=== PATIENT | male | born 1955 | race Caucasian/White ===

== ENCOUNTER 2022-09-20 15:00 | Inpatient (IN) | payer MEDICARE, OTHER ==
[~2022-09-20] VITALS: Ht 180.3 cm; Wt 64.9 kg
--- NOTE | 2022-09-20 15:30 | NUR ---
Patient for medical clearance for gps admission. Sitter at bedside. Kept comfortable, will continue to monitor accordingly.
[2022-09-20] MEDS ORDERED: CHOL100043 PO (15:34)
[2022-09-20] MEDS ORDERED: LEVE500T9 PO (15:34)
[2022-09-20] MEDS ORDERED: ATOR10TA PO (15:34)
[2022-09-20] MEDS ORDERED: FENO54TA PO (15:34)
[2022-09-20] MEDS ORDERED: LOPE2TAB25 PO (15:34)
[2022-09-20] MEDS ORDERED: RISP0.2515 PO (15:34)
[2022-09-20] MEDS ORDERED: BISA10SU11 RC (15:34)
[2022-09-20] MEDS ORDERED: MELA3CAP2 PO (15:34)
[2022-09-20] MEDS ORDERED: NA P133E RC (15:34)
[2022-09-20] MEDS ORDERED: MAGN400O6 PO (15:34)
[2022-09-20] MEDS ORDERED: ASPI-1420 PO (15:34)
[2022-09-20] MEDS ORDERED: ACET-868 PO (15:34)
[2022-09-20] MEDS ORDERED: MULT-447 PO (15:34)
[2022-09-20] MEDS ORDERED: BACL10TA PO (15:34)
[2022-09-20] MEDS ORDERED: TRAZ-182 PO (15:34)
[2022-09-20] MEDS ORDERED: ASCO-352 PO (15:34)
--- NOTE | 2022-09-20 17:27 | NUR ---
covid swab collected and sent to lab.
[2022-09-20 17:34] LABS: BASOPHILS # (AUTO) 0.1 K/uL (0.0-0.2); EOSINOPHILS % (AUTO) 7.1 % (0.0-6.0); HEMATOCRIT 39 % (39-51); HEMOGLOBIN 12.8 g/dL (13.5-17.5); LYMPHOCYTES # (AUTO) 1.6 K/uL (0.8-4.8); LYMPHOCYTES % (AUTO) 28.8 % (20.0-44.0); MEAN CORPUSCULAR HGB CONC 33 g/dl (31.0-36.0); MEAN CORPUSCULAR VOLUME 86 fL (80-96); MONOCYTES # (AUTO) 0.6 K/uL (0.1-1.30); MONOCYTES % (AUTO) 11.2 % (2.0-12.0); NEUTROPHILS # (AUTO) 2.9 K/uL (1.8-8.9); NEUTROPHILS % (AUTO) 51.9 % (43.0-81.0); PLATELET COUNT (AUTO) 225 K/uL (150-450); RED BLOOD CELL COUNT(AUTO) 4.55 MIL/uL (4.5-6.0); WHITE BLOOD COUNT (AUTO) 5.6 K/uL (4.3-11.0)
[2022-09-20 17:51] LABS: CALCIUM, SERUM 8.7 mg/dL (8.5-10.1); CARBON DIOXIDE 26 mmol/L (21-32); CHLORIDE 105 mmol/L (98-107); CREATININE 1.3 mg/dL (0.6-1.3); GLUCOSE 83 mg/dL (74-106); SODIUM SERUM 139 mmol/L (136-145); UREA NITROGEN, BLOOD 32 mg/dL (7-18)
[2022-09-20 17:59] LABS: ALANINE AMINOTRANSFERASE 17 U/L (12-78); ALBUMIN 3.5 g/dL (3.4-5.0); ALKALINE PHOSPHATASE 40 U/L (46-116); ASPARTATE AMINOTRANSFERASE 11 U/L (15-37); BILIRUBIN,DIRECT 0.1 mg/dL (0.0-0.2); BILIRUBIN,TOTAL 0.3 mg/dL (0.2-1.0); TOTAL PROTEIN, SERUM 6.8 g/dL (6.4-8.2)
[2022-09-20 18:00] LABS: ACETAMINOPHEN 0 ug/ml (10-30); ALCOHOL, BLOOD < 3 mg/dL (0-0)
--- NOTE | 2022-09-20 19:06 | NUR ---
urine collected and sent to lab.
[2022-09-20 19:54] LABS: BILIRUBIN,URINE NEGATIVE (NEGATIVE); COLOR,URINE YELLOW (YELLOW); LEUKOCYTE ESTERASE ,URINE NEGATIVE (NEGATIVE); NITRITE, URINE POSITIVE (NEGATIVE); PROTEIN,URINE NEGATIVE (NEGATIVE); UGLUCOSE NEGATIVE (NEGATIVE); UROBILINOGEN,URINE 0.2 EU/dL (0.2)
[2022-09-20 20:01] LABS: BACTERIA,URINE 4+ /HPF (None Seen); RBC,URINE 0-2 /HPF (0-2); SQUAMOUS EPITHELIAL CELL,UR Few /HPF (None Seen)
--- NOTE | 2022-09-20 20:54 | NUR ---
REPORT GIVEN TO LAILA TINOCO
--- NOTE | 2022-09-20 21:20 | NUR ---
PATIENT BEING TRTANSFERRED TO [facility]
[2022-09-20] MEDS ORDERED: CIPROFLOXACIN HCL 250 MG TABLET PO ONE (21:30)
[2022-09-20] MEDS ORDERED: CIPROFLOXACIN HCL 500 MG TABLET ONE (21:31)
--- NOTE | 2022-09-20 21:50 | NUR ---
RN NOTES PT REFUSED TO ADMISSION PAPERS DUE TO CONFUSION.
--- NOTE | 2022-09-20 21:58 | NUR ---
RN NOTES; RECEIVED PATIENT FROM ER ON WHEELCHAIR IN RM 212-1,AOX2 WITH CONFUSION,RM AIR MARY WELL,NO SIGN SOB/DISTRESS NOTED,PT NOTED LEFTSIDED WEAKNESS,NO SIGN OF AGGRESSION NOTED.PT NOTED POINTING FINGER TOWARDS STAFF AND LAUGHT.COOPERATIVE,PT WAS ORIENT THE RM AND VERBALLY UNDERSTANDING,WILL CONTINUE TO MONITOR FREQUENTLY.
[2022-09-20] MEDS ORDERED: ACETAMINOPHEN 325 MG TABLET PO PRN (22:00)
[2022-09-20] MEDS ORDERED: MAG HYDROX/AL HYDROX/SIMETH 30 ML UDC PO PRN (22:00)
[2022-09-20] MEDS ORDERED: MAGNESIUM HYDROXIDE 30 ML UDC PO PRN (22:00)
[2022-09-20] MEDS ORDERED: BLOOD SUGAR DIAGNOSTIC 1 EACH STRIP IN ONE (22:00)
[2022-09-20 22:07] VITALS: BP 136/68
[2022-09-20] MEDS: ATORVASTATIN 10 MG TABLET PO SCH (22:46)
[2022-09-20] MEDS: LEVETIRACETAM (250 MG) 250 MG TABLET PO SCH (22:46)
--- NOTE | 2022-09-20 23:00 | NUR ---
RN NOTES; PT REFUSED TO CHECK BS.
[2022-09-21 07:35] LABS: CHOLESTEROL 122 mg/dL (<200); HDL CHOLESTEROL 42 mg/dL (40-60); LDL 77 mg/dL (0-99); TRIGLYCERIDES 70 mg/dL (30-150)
[2022-09-21 07:43] LABS: ALBUMIN 3.2 g/dL (3.4-5.0); BILIRUBIN,TOTAL 0.5 mg/dL (0.2-1.0); CALCIUM, SERUM 8.5 mg/dL (8.5-10.1); CREATININE 1.1 mg/dL (0.6-1.3); POTASSIUM 3.8 mmol/L (3.5-5.1); TOTAL PROTEIN, SERUM 6.4 g/dL (6.4-8.2)
[2022-09-21 08:00] VITALS: BP 126/52
[2022-09-21] MEDS: MULTIPLE VIT (LYCOPENE/FA/MV,CA,IRON,MIN/LUT)1 TAB PO SCH (08:40)
[2022-09-21] MEDS: ASPIRIN EC 81 MG TABLET.DR PO SCH (08:40)
[2022-09-21] MEDS: CHOLECALCIFEROL (VITAMIN D 3) 400 UNIT TABLET PO SCH (08:40)
[2022-09-21] MEDS: Fenofibrate 48 MG TABLET PO SCH (08:40)
[2022-09-21] MEDS: BACLOFEN (10 MG) 10 MG TABLET PO SCH ×3 (08:40→17:34)
[2022-09-21] MEDS: LEVETIRACETAM (250 MG) 250 MG TABLET PO SCH ×2 (08:41→21:27)
[2022-09-21] MEDS: ASCORBIC ACID 500 MG TABLET PO SCH (08:41)
--- NOTE | 2022-09-21 09:19 | NUR ---
TERRI Clinical Note: Pt placed on a 5150 hold for danger to others and GD. Per hold, pt was striking out at staff and not taking medications. [place] [address]; ([phone]). TERRI spoke with Melina alcazar ([phone]) who stated that pt is welcomed back upon discharge. TERRI will contact pt's daughter Kalina ([phone]) to discuss treatment and discharge plan.
--- NOTE | 2022-09-21 09:19 | NUR ---
TERRI Initial Discharge Plan: Patient currently resides at [facility] [address] [place] [id number]; ([phone]). TERRI spoke with Melina alcazar ([phone]) who stated that pt is welcomed back upon discharge. TERRI will contact pt's daughter Kalina ([phone]) to discuss treatment and discharge plan. TERRI will work with the pt, family, and MD to help coordinate appropriate discharge.
--- NOTE | 2022-09-21 09:20 | NUR ---
Treatment Plan: Pt appeared disorganized and was unable to sign treatment plan.
--- NOTE | 2022-09-21 10:41 | NUR ---
Pt. keeps screaming and wanted to smoke. Pt. was explained that we are a non smoking hospital and pt. is disruptive in the unit and Dr. Ceballos in the unit and ordered Zyprexa 5 mg IM and Ativan 1 mg IM. Pt. agreed for the injections and said he wanted injections.
--- NOTE | 2022-09-21 10:45 | NUR ---
RN NOTES PATIENT ANXIOUS, LOUD, PARANOID, GET TO ONE TIME ORDER VIA Dr GTZ ATIVAN 1MG/ML IM, AND ZYPREXA 5MG/ML IMX1 NOW. ORDER TAKEN AND CARRIED OUT.
--- NOTE | 2022-09-21 10:50 | NUR ---
RN NOTED ADMINISTERED ATIVAN 1 MG/ML IM, AND ZYPREXA 5MG/ML IM LEFT DELTOID AREA AT THIS TIME. PATIENT REFUSED VITAL SIGN TO BE TAKEN. PATIENT SITTING IN THE DIANA CHAIR. WILL FOLLOW UP.
[2022-09-21] MEDS ORDERED: LORAZEPAM INJ 2 MG/ML VIAL IM ONE (11:00)
[2022-09-21] MEDS ORDERED: OLANZAPINE 10 MG VIAL IM ONE (11:00)
--- NOTE | 2022-09-21 13:33 | NUR ---
TERRI Family Contact: TERRI contacted pt's daughter Kalina ([phone]) and discussed treatment/discharge plan. Daughter stated that she is the DPOA and will send document to this designer/writer. Daughter would want pt to return back to [facility]. Daughter shared that pt has a history of having reoccurring uti. TERRI notified this concern to pt's assigned nurse Jamarcus. Jamarcus stated that pt possibly has uti and took Cipro. Nurse will be in contact with medical doctor if pt needs to continue antibiotics. TERRI shared this information to Dr. Ceballos.
--- NOTE | 2022-09-21 14:09 | NUR ---
DPOA Document: Daughter Kalina ([phone]) send DPOA paperwork and SW placed it in patient's chart.
[2022-09-21 16:00] VITALS: BP 126/73
--- NOTE | 2022-09-21 16:41 | NUR ---
rn notes notified hospitalist Dr Espinosa about patient urine result. no new order at this time.
[2022-09-21] MEDS: risperiDONE 0.25 MG TABLET PO SCH (17:33)
--- NOTE | 2022-09-21 18:00 | NUR ---
RN NOTES PATIENT MED COMPLIANT, REDIRECTABLE, DUE MEDICATION ADMINISTERED, PATIENT ABLE TO TURN AND REPOSTION SELF IN THE DIANA CHAIR. NEEDS ATTENDED AND ATICIPATED. TOLERATED DINNER 100% SELF.
--- NOTE | 2022-09-21 19:30 | NUR ---
GPS RN NOTES RECEIVED SITTING ON DIANA CHAIR,A/O X2,CONFUSED,DISORGANIZED,WITH LEFT SIDE WEAKNESS,YELLS AT TIMES,ALWAYS DOING SIGNS TO HAVE SMOKE A CIGARETTE,DISORGANIZED.NOTED SOME REDNESS ON BOTH LOWER EXTREMITIES.FALL RISK,FALL PRECAUTION OBSERVED.WILL CONTINUE WITH Q 15 MINUTES FOR SAFETY.
[2022-09-21 20:00] VITALS: BP_SYST 125; BP_DIAS 74; BP_DIAS 79
[2022-09-21] MEDS: ATORVASTATIN 10 MG TABLET PO SCH (21:27)
[2022-09-21] MEDS: TRAZODONE 50 MG TABLET PO SCH (21:27)
[2022-09-22] MEDS: CIPROFLOXACIN HCL 250 MG TABLET PO SCH ×3 (01:00→21:03)
[2022-09-22 08:00] VITALS: BP 122/74
[2022-09-22] MEDS: MULTIPLE VIT (LYCOPENE/FA/MV,CA,IRON,MIN/LUT)1 TAB PO SCH (08:58)
[2022-09-22] MEDS: ASCORBIC ACID 500 MG TABLET PO SCH (08:59)
[2022-09-22] MEDS: LEVETIRACETAM (250 MG) 250 MG TABLET PO SCH ×2 (08:59→21:03)
[2022-09-22] MEDS: ASPIRIN EC 81 MG TABLET.DR PO SCH (08:59)
[2022-09-22] MEDS: CHOLECALCIFEROL (VITAMIN D 3) 400 UNIT TABLET PO SCH (08:59)
[2022-09-22] MEDS: Fenofibrate 48 MG TABLET PO SCH (08:59)
[2022-09-22] MEDS: risperiDONE 0.25 MG TABLET PO SCH (08:59)
[2022-09-22] MEDS: BACLOFEN (10 MG) 10 MG TABLET PO SCH ×3 (08:59→16:19)
[2022-09-22] MEDS: risperiDONE 1 MG TABLET PO SCH ×2 (12:19→16:19)
[2022-09-22 16:00] VITALS: BP 99/68
--- NOTE | 2022-09-22 18:36 | NUR ---
RN NOTE PATIENT UP IN GERICHAIR, AWAKE. A/O X2. VERBALLY RESPONSIVE, NO SIGNS OF ACUTE DISTRESS NOTED. BREATHING EVEN AND UNLABORED. DENIES ANY PAIN OR DISCOMFORT. PATIENT REMAINS ANXIOUS, RESTLESS, WITH EPISODES OF SCREAMING/YELLING, INTERNALLY PREOCCUPIED, DISORGANIZED. RE-ORIENTED NEEDED. COMPLIANT WITH MEDS. WILL ENDORSE TO NEXT SHIFT FOR CONTINUITY OF CARE.
[2022-09-22] MEDS: LORAZEPAM 0.5 MG TABLET PO PRN (18:46)
--- NOTE | 2022-09-22 18:46 | NUR ---
RN NOTE LORAZEPAM 1 MG ORAL GIVEN FOR RESTLESSNESS, SCREAMING AND YELLING. WILL MONITOR FOR EFFECTIVENESS.
--- NOTE | 2022-09-22 19:48 | NUR ---
RN NOTE RECEIVED PT IN DIANA CHAIR, AWAKE, A/O X2, CONFUSED.NO SIGNS OF ACUTE DISTRESS NOTED. NO COMPLAINTS OF PAIN AT THIS TIME. STABLE ON ROOM AIR, BREATHING EVEN AND UNLABORED.PT ASSISTED WITH TURNING AND REPOSITIONING Q2 HR AND PRN FOR COMFORT AND CIRCULATION. PT HAS NO NEEDS AT THIS TIME.
[2022-09-22 20:00] VITALS: BP 129/58
[2022-09-22] MEDS: ATORVASTATIN 10 MG TABLET PO SCH (21:03)
[2022-09-22] MEDS: TRAZODONE 50 MG TABLET PO SCH (22:08)
--- NOTE | 2022-09-23 07:28 | NUR ---
GPS RN OPENING NOTE RECEIVED PT IN BED ASLEEP, EASILY AROUSED. A/O X2, CONFUSED. REORIENTED PT NEEDED. ON ROOM AIR, TOLERATING WELL. NO SOB NOTED. NOT IN ANY SIGNS OF RESPIRATORY DISTRESS NOTED. NO COMPLAINTS OF PAIN AT THIS TIME. STABLE ON ROOM AIR, BREATHING EVEN AND UNLABORED. SAFETY MEASURES IN PLACE AT ALL TIMES: BED IN LOWEST AND LOCKED POSITION, BED SIDE RAILS UPX3, AND CALL LIGHT WITHIN REACH. WILL CONTINUE TO MONITOR PT.
[2022-09-23 08:00] VITALS: BP 120/68
[2022-09-23] MEDS: MULTIPLE VIT (LYCOPENE/FA/MV,CA,IRON,MIN/LUT)1 TAB PO SCH (08:48)
[2022-09-23] MEDS: CIPROFLOXACIN HCL 250 MG TABLET PO SCH ×2 (08:49→20:06)
[2022-09-23] MEDS: CHOLECALCIFEROL (VITAMIN D 3) 400 UNIT TABLET PO SCH (08:49)
[2022-09-23] MEDS: Fenofibrate 48 MG TABLET PO SCH (08:49)
[2022-09-23] MEDS: LEVETIRACETAM (250 MG) 250 MG TABLET PO SCH ×2 (08:49→20:06)
[2022-09-23] MEDS: BACLOFEN (10 MG) 10 MG TABLET PO SCH ×3 (08:49→16:08)
[2022-09-23] MEDS: risperiDONE 1 MG TABLET PO SCH ×3 (08:49→16:08)
[2022-09-23] MEDS: ASCORBIC ACID 500 MG TABLET PO SCH (08:49)
[2022-09-23] MEDS: ASPIRIN EC 81 MG TABLET.DR PO SCH (08:52)
[2022-09-23] MEDS: LORAZEPAM 0.5 MG TABLET PO PRN (09:40)
--- NOTE | 2022-09-23 09:41 | NUR ---
RN NOTE PT NOTED WITH EPISODES OF AGITATION AND SCREAMING. ATIVAN 1MG PO GIVEN ORDERED PRN Q6H FOR ANXIETY AND AGITATION. WILL MONITOR AND REASSESS PT.
[2022-09-23 16:00] VITALS: BP 140/67
[2022-09-23 20:00] VITALS: BP 127/57
[2022-09-23] MEDS: ATORVASTATIN 10 MG TABLET PO SCH (21:27)
[2022-09-23] MEDS: TRAZODONE 50 MG TABLET PO SCH (21:27)
[2022-09-24 08:00] VITALS: BP 113/69
[2022-09-24] MEDS: CHOLECALCIFEROL (VITAMIN D 3) 400 UNIT TABLET PO SCH (08:36)
[2022-09-24] MEDS: LEVETIRACETAM (250 MG) 250 MG TABLET PO SCH ×2 (08:36→21:25)
[2022-09-24] MEDS: MULTIPLE VIT (LYCOPENE/FA/MV,CA,IRON,MIN/LUT)1 TAB PO SCH (08:36)
[2022-09-24] MEDS: CIPROFLOXACIN HCL 250 MG TABLET PO SCH ×2 (08:36→21:25)
[2022-09-24] MEDS: Fenofibrate 48 MG TABLET PO SCH (08:36)
[2022-09-24] MEDS: risperiDONE 1 MG TABLET PO SCH ×3 (08:36→16:12)
[2022-09-24] MEDS: ASCORBIC ACID 500 MG TABLET PO SCH (08:36)
[2022-09-24] MEDS: ASPIRIN EC 81 MG TABLET.DR PO SCH (08:36)
[2022-09-24] MEDS: BACLOFEN (10 MG) 10 MG TABLET PO SCH ×3 (08:36→16:12)
--- NOTE | 2022-09-24 09:00 | NUR ---
RN NOTE- YELLING, CONFUSED, DISORGANIZED AND REQUIRING REDIRECTION, REORIENTATION, MED COMPLIANT
[2022-09-24 16:00] VITALS: BP 137/56
--- NOTE | 2022-09-24 19:27 | NUR ---
GPS RN NOTES RECEIVED ON DIANA CHAIR,SECURED FOR FALL,A/O X1,,BREATHING EASY,NO SOB,CONFUSED,NOTED LEFT SIDED WEAKNESS.SCREAMS AT TIMES,MED COMPLIANT,,WILL CONTINUE TO MONITOR BEHAVIOR .
[2022-09-24 20:00] VITALS: BP 105/58
[2022-09-24 20:20] VITALS: BP 105/58
[2022-09-24] MEDS: ATORVASTATIN 10 MG TABLET PO SCH (21:25)
[2022-09-24] MEDS: TRAZODONE 50 MG TABLET PO SCH (21:25)
--- NOTE | 2022-09-24 22:00 | NUR ---
GPS RN NOTES PUT BACK TO BED THIS TIME,KEPT WARM AND COMFORTABLE.
[2022-09-25 08:00] VITALS: BP 98/45
[2022-09-25] MEDS: Fenofibrate 48 MG TABLET PO SCH (08:44)
[2022-09-25] MEDS: CHOLECALCIFEROL (VITAMIN D 3) 400 UNIT TABLET PO SCH (08:44)
[2022-09-25] MEDS: LEVETIRACETAM (250 MG) 250 MG TABLET PO SCH ×2 (08:44→20:59)
[2022-09-25] MEDS: ASPIRIN EC 81 MG TABLET.DR PO SCH (08:44)
[2022-09-25] MEDS: risperiDONE 1 MG TABLET PO SCH ×3 (08:44→16:26)
[2022-09-25] MEDS: CIPROFLOXACIN HCL 250 MG TABLET PO SCH ×2 (08:44→20:59)
[2022-09-25] MEDS: ASCORBIC ACID 500 MG TABLET PO SCH (08:45)
[2022-09-25] MEDS: MULTIPLE VIT (LYCOPENE/FA/MV,CA,IRON,MIN/LUT)1 TAB PO SCH (08:45)
[2022-09-25] MEDS: BACLOFEN (10 MG) 10 MG TABLET PO SCH ×3 (08:45→16:26)
[2022-09-25] MEDS: LORAZEPAM 0.5 MG TABLET PO PRN (10:28)
--- NOTE | 2022-09-25 10:28 | NUR ---
RN NOTE PATIENT UP IN GERICHAIR, WITH EPISODES OF AGITATION AND SCREAMING. REDIRECTED NEEDED. LORAZEPAM 1 MG ORAL GIVEN ORDERED. WILL CONTINUE TO MONITOR AND REASSESS PATIENT.
[2022-09-25 16:00] VITALS: BP 115/55
--- NOTE | 2022-09-25 18:36 | NUR ---
RN NOTE PATIENT UP IN DIANA CHAIR, CONFUSED AND DISORIENTED. REALITY ORIENTATION PROVIDED NEEDED. STILL WITH EPISODES OF SCREAMING/YELLING, PRN ATIVAN GIVEN ORDERED. REDIRECTED NEEDED. ALL DUE MEDS GIVEN, TAKEN WELL. COMPLIANT WITH MEDS. NEEDS ATTENDED. SAFETY MEASURE MAINTAINED WILL ENDORSE TO NEXT SHIFT FOR CONTINUITY OF CARE.
[2022-09-25 20:55] VITALS: BP 133/59
[2022-09-25] MEDS: ATORVASTATIN 10 MG TABLET PO SCH (21:00)
[2022-09-25] MEDS: TRAZODONE 50 MG TABLET PO SCH (21:01)
[2022-09-26 08:00] VITALS: BP 136/37
[2022-09-26] MEDS: MULTIPLE VIT (LYCOPENE/FA/MV,CA,IRON,MIN/LUT)1 TAB PO SCH (08:40)
[2022-09-26] MEDS: ASPIRIN EC 81 MG TABLET.DR PO SCH (08:40)
[2022-09-26] MEDS: LEVETIRACETAM (250 MG) 250 MG TABLET PO SCH ×2 (08:40→20:32)
[2022-09-26] MEDS: BACLOFEN (10 MG) 10 MG TABLET PO SCH ×3 (08:40→16:15)
[2022-09-26] MEDS: ASCORBIC ACID 500 MG TABLET PO SCH (08:40)
[2022-09-26] MEDS: CIPROFLOXACIN HCL 250 MG TABLET PO SCH ×2 (08:40→20:32)
[2022-09-26] MEDS: CHOLECALCIFEROL (VITAMIN D 3) 400 UNIT TABLET PO SCH (08:40)
[2022-09-26] MEDS: Fenofibrate 48 MG TABLET PO SCH (08:40)
[2022-09-26] MEDS: risperiDONE 1 MG TABLET PO SCH (08:40)
--- NOTE | 2022-09-26 09:00 | NUR ---
RN NOTE- PATIENT IN BED, ASLEEP, EASILY AWAKENED. NO SIGNS OF ACUTE DISTRESS NOTED. PATIENT REMIANS CONFUSED, DISORGANIZED AND REQUIRING REDIRECTION, REORIENTATION, MED COMPLIANT
[2022-09-26 16:03] VITALS: BP 114/39
[2022-09-26] MEDS: HALOPERIDOL 5 MG TABLET PO SCH (16:16)
[2022-09-26 19:26] VITALS: BP 132/67
[2022-09-26] MEDS: ATORVASTATIN 10 MG TABLET PO SCH (21:12)
[2022-09-26] MEDS: TRAZODONE 50 MG TABLET PO SCH (21:13)
[2022-09-27 08:00] VITALS: BP 115/46
[2022-09-27] MEDS: MULTIPLE VIT (LYCOPENE/FA/MV,CA,IRON,MIN/LUT)1 TAB PO SCH (08:49)
[2022-09-27] MEDS: CHOLECALCIFEROL (VITAMIN D 3) 400 UNIT TABLET PO SCH (08:50)
[2022-09-27] MEDS: BACLOFEN (10 MG) 10 MG TABLET PO SCH ×3 (08:50→17:18)
[2022-09-27] MEDS: CIPROFLOXACIN HCL 250 MG TABLET PO SCH ×2 (08:50→21:12)
[2022-09-27] MEDS: HALOPERIDOL 5 MG TABLET PO SCH ×2 (08:50→17:18)
[2022-09-27] MEDS: Fenofibrate 48 MG TABLET PO SCH (08:50)
[2022-09-27] MEDS: ASPIRIN EC 81 MG TABLET.DR PO SCH (08:51)
[2022-09-27] MEDS: LEVETIRACETAM (250 MG) 250 MG TABLET PO SCH ×2 (08:51→21:13)
[2022-09-27] MEDS: ASCORBIC ACID 500 MG TABLET PO SCH (08:51)
[2022-09-27 16:00] VITALS: BP 155/81
[2022-09-27] MEDS: LORAZEPAM 0.5 MG TABLET PO PRN (16:36)
--- NOTE | 2022-09-27 16:37 | NUR ---
NURSE NOTE: PT HAVING VERBAL OUTBURSTS, DISRUPTING OTHER PTS. ATIVAN PO ADMINISTERED ORDERE. PT MARY WELL. WILL CONT TO MONITOR.
--- NOTE | 2022-09-27 17:36 | NUR ---
NURSE NOTE: PT CALM AT THIS TIME. ATIVAN EFFECTIVE. WILL CONT TO MONITOR.
--- NOTE | 2022-09-27 19:42 | NUR ---
RECEIVED PATIENT IN DIANA CHAIR AT THE HALLWAY, WITH STAFF, SECURED. A/O X1, WITH EPISODE OF CONFUSIONS. NO SOB NOTED. CALM AT THIS TIME. WILL MONITOR
[2022-09-27 19:44] VITALS: BP 147/80
[2022-09-27] MEDS: ATORVASTATIN 10 MG TABLET PO SCH (21:14)
[2022-09-27] MEDS: TRAZODONE 50 MG TABLET PO SCH (21:14)
[2022-09-28 08:00] VITALS: BP 121/64
[2022-09-28] MEDS: ASCORBIC ACID 500 MG TABLET PO SCH (08:44)
[2022-09-28] MEDS: Fenofibrate 48 MG TABLET PO SCH (08:44)
[2022-09-28] MEDS: MULTIPLE VIT (LYCOPENE/FA/MV,CA,IRON,MIN/LUT)1 TAB PO SCH (08:45)
[2022-09-28] MEDS: CIPROFLOXACIN HCL 250 MG TABLET PO SCH ×2 (08:45→20:41)
[2022-09-28] MEDS: ASPIRIN EC 81 MG TABLET.DR PO SCH (08:45)
[2022-09-28] MEDS: HALOPERIDOL 5 MG TABLET PO SCH ×4 (08:45→16:51)
[2022-09-28] MEDS: LEVETIRACETAM (250 MG) 250 MG TABLET PO SCH ×2 (08:45→20:41)
[2022-09-28] MEDS: BACLOFEN (10 MG) 10 MG TABLET PO SCH ×3 (08:45→16:51)
[2022-09-28] MEDS: CHOLECALCIFEROL (VITAMIN D 3) 400 UNIT TABLET PO SCH (08:45)
--- NOTE | 2022-09-28 10:16 | NUR ---
Court Notification: TERRI contacted pt's daughter Kalina ([phone]) and left a voicemail of [phone] hearing.
--- NOTE | 2022-09-28 13:41 | NUR ---
Court Hearing: Patient's court hearing for 3630 was today and it was upheld for GD.
--- NOTE | 2022-09-28 13:41 | NUR ---
RN-NOTES HALDOL 2.5MG P.O NOT ADMINISTER DUE TO HALDOL 2.5MG P.O WAS GIVEN AT 1233.
[2022-09-28 16:00] VITALS: BP 99/64
--- NOTE | 2022-09-28 18:34 | NUR ---
RN-NOTES PATIENT THE DAY ROOM UP IN THE DIANA CHAIR,GUARDED,NO ACUTE DISTRESS NOTED. COMPLIANT WITH MEDICATIONS.NEEDS MAXIMUM ASSIST WITH ADL'S.NOTED WITH EPISODE OF YELLING. NEEDS REDIRECTIONS. ALL NEEDS ATTENDED AND ANTICIPATED. WILL CONT. MONITORING FOR SAFETY AND BEHAVIOR.WILL ENDORSE TO INCOMING NURSE FOR CONTINUITY OF CARE.
--- NOTE | 2022-09-28 19:53 | NUR ---
GPS CONE MACHINE OPERATOR NOTES PT AWAKE ,A/O X 1, BREATHING EVEN AND UNLABORED, RECEIVED ON DIANA CHAIR IN THE [address]ERR[address] WAY,SECURED FOR SAFETY MEASURES,CONFUSED,NOTED LEFT SIDED WEAKNESS. SCREAMS AT TIMES. WILL CONT TO MONITOR BEHAVIOR AND ANTICIPATE/ ATTEND NEEDS.
[2022-09-28 20:00] VITALS: BP 113/56
[2022-09-28] MEDS: ATORVASTATIN 10 MG TABLET PO SCH (21:03)
[2022-09-28] MEDS: TRAZODONE 50 MG TABLET PO SCH (21:04)
--- NOTE | 2022-09-28 21:49 | NUR ---
DUE MEDS GIVEN, PT COMPLIANT WITH HIS MEDICATION. CALM AND AWAKE AT THIS TIME. CONT TO MONITOR AND ANTICIPATE NEEDS.
[2022-09-28] MEDS: ZOLPIDEM TARTRATE 5 MG TABLET PO PRN (22:04)
--- NOTE | 2022-09-28 22:04 | NUR ---
PT STILL WIDE AWAKE, GETTING REALLY LOUD WITH HIS REPETITIVE WORDS, PRN AMBIEN 5 MG GIVEN FOR INSOMNIA. WILL CONT TO MONITOR AND ANTICIPATE NEEDS.
--- NOTE | 2022-09-28 23:04 | NUR ---
1 HR POST AMBIEN, PT STILL AWAKE BUT APPEARS SLEEPY, CONT WITH MONITORING PT'S BEHAVIOR AND KEEPING PT CLEAN AND COMFORTABLE. REPOSITIONED PT.
--- NOTE | 2022-09-28 23:18 | NUR ---
PT TAKEN BACK TO HIS BED BY PROMOTIONS ASSISTANT STAFFS, PM CARE/ MAKI CARE PROVIDED. SAFETY MEASURES OBSERVED, WILL CONT TO MONITOR.
--- NOTE | 2022-09-29 01:30 | NUR ---
PT ASLEEP , EASY TO AROUSE, BREATHING EVEN AND UNLABORED,SAFETY MEASURES NOTED. CONT TO MONITOR.
--- NOTE | 2022-09-29 06:03 | NUR ---
PT REMAINS IN HIS BED, AM CARE PROVIDED BY CNAS, TOLERATED WELL BY PT, PT SLEPT WELL DURING SHIFT, AND TOLERATED MEDICATIONS. NO SIGNIFICANT CHANGE OF CONDITION NOTED. SAFETY MEASURES OBSERVED. CONT TO MONITOR AND WILL ENDORSE CONTINUATION OF CARE TO AM ONCOMING NURSE.
[2022-09-29 08:00] VITALS: BP 105/57
[2022-09-29] MEDS: ASCORBIC ACID 500 MG TABLET PO SCH (08:38)
[2022-09-29] MEDS: Fenofibrate 48 MG TABLET PO SCH (08:38)
[2022-09-29] MEDS: CHOLECALCIFEROL (VITAMIN D 3) 400 UNIT TABLET PO SCH (08:38)
[2022-09-29] MEDS: CIPROFLOXACIN HCL 250 MG TABLET PO SCH (08:38)
[2022-09-29] MEDS: MULTIPLE VIT (LYCOPENE/FA/MV,CA,IRON,MIN/LUT)1 TAB PO SCH (08:38)
[2022-09-29] MEDS: ASPIRIN EC 81 MG TABLET.DR PO SCH (08:38)
[2022-09-29] MEDS: LEVETIRACETAM (250 MG) 250 MG TABLET PO SCH ×2 (08:39→21:40)
[2022-09-29] MEDS: BACLOFEN (10 MG) 10 MG TABLET PO SCH ×3 (08:39→16:33)
[2022-09-29] MEDS: HALOPERIDOL 5 MG TABLET PO SCH ×3 (08:39→16:34)
[2022-09-29] MEDS: LORAZEPAM 0.5 MG TABLET PO PRN (15:58)
--- NOTE | 2022-09-29 15:58 | NUR ---
RN-NOTES NOTED PATIENT WITH DISRUPTIVE BEHAVIOR CONTINUOUSLY YELLING IN THE DAY ROOM, REDIRECTED AND ATIVAN 1MG P.O GIVEN PRN ORDER. WILL CONT. MONITORING FOR SAFETY AND BEHAVIOR.
[2022-09-29 16:00] VITALS: BP 115/63
--- NOTE | 2022-09-29 17:25 | NUR ---
RN-NOTES PATIENT EATING HIS DINNER IN THE DAY ROOM,ELECTRICAL PLUMBING SUPERVISOR HEARD A LOUD GAGGING SOUND AND THE ELECTRICAL PLUMBING SUPERVISOR RASH TO THE DAY ROOM AND SEEN THE PATIENT'S FACE WITH BLUISH COLOR WITH HIS MOUTH FULL OF FOOD. ANOTHER STAFF (RENETTA) CAME TO HELP. CHARGE NURSE AND THE ELECTRICAL PLUMBING SUPERVISOR TOOK OFF THE PATIENT FROM THE DIANA CHAIR AND START HEIMLICH MANEUVER, IT TOOK FEW MINUTES BUT NOT EFFECTIVE. PATIENT WAS LOWERED TO THE FLOOR AND CPR INITIATED DUE TO PATIENT NONE RESPONSIVE AND TURNING BLUE COLOR.CHARGE NURSE MANAGE TO REMOVE TWO BIG CHUNK OF MEAT OUT HIS MOUTH AND THE PATIENT START RESPONDING AND BACK TO HIS NORMAL COLOR.VITAL SIGN TAKEN BP 132/62, P98 AND O2 SAT 93 % ROOM AIR.PATIENT WAS ASSISTED BACK UP TO THE CHAIR.DR. DR. TREADWELL WAS NOTIFIED WITH T.O ORDER OF CBC,BMP,TROPONIN LEVEL ,LACTIC ACID AND CHEST X-RAY . NOTED AND CARRIED OUT.WILL CONT. MONITORING FOR FOR ANY ADVERSE CHANGES . WILL ENDORSE TO INCOMING NURSE FOR CONTINUITY OF CARE.
--- NOTE | 2022-09-29 17:55 | NUR ---
RN-NOTES PATIENT IN THE DAY ROOM UP IN THE DIANA CHAIR AWAKE,CALM NO ACUTE DISTRESS NOTED.
--- NOTE | 2022-09-29 18:16 | NUR ---
RN-NOTES PATIENT'S DAUGHTER MARYCRUZ LOO WAS NOTIFIED ABOUT THE INCIDENT.
--- NOTE | 2022-09-29 18:52 | NUR ---
RN-NOTES DR. TREADWELL NOTIFIED ON THE RESULTS OF CHEST X-RAY WITH ORDER OF AUGMENTIN P.O BID X 7 DAYS AND D/C CIPRO ORDER. NOTED AND CARRIED OUT.
[2022-09-29 19:03] LABS: CALCIUM, SERUM 8.8 mg/dL (8.5-10.1); CARBON DIOXIDE 25 mmol/L (21-32); CHLORIDE 103 mmol/L (98-107); GLUCOSE 126 mg/dL (74-106); SODIUM SERUM 138 mmol/L (136-145); UREA NITROGEN, BLOOD 29 mg/dL (7-18)
[2022-09-29 19:50] LABS: BASOPHILS # (AUTO) 0.1 K/uL (0.0-0.2); BASOPHILS % (AUTO) 0.8 % (0.0-2.0); EOSINOPHILS % (AUTO) 5.4 % (0.0-6.0); HEMATOCRIT 40 % (39-51); HEMOGLOBIN 13.3 g/dL (13.5-17.5); LYMPHOCYTES # (AUTO) 1.2 K/uL (0.8-4.8); LYMPHOCYTES % (AUTO) 15.1 % (20.0-44.0); MEAN CORPUSCULAR HGB CONC 33 g/dl (31.0-36.0); MEAN CORPUSCULAR VOLUME 86 fL (80-96); MONOCYTES # (AUTO) 0.6 K/uL (0.1-1.30); NEUTROPHILS # (AUTO) 5.6 K/uL (1.8-8.9); NEUTROPHILS % (AUTO) 71.7 % (43.0-81.0); PLATELET COUNT (AUTO) 218 K/uL (150-450); RED BLOOD CELL COUNT(AUTO) 4.69 MIL/uL (4.5-6.0); WHITE BLOOD COUNT (AUTO) 7.9 K/uL (4.3-11.0)
[2022-09-29 20:00] VITALS: BP 131/70
--- NOTE | 2022-09-29 20:22 | NUR ---
MEDICAL STAFF ASSISTANT NOTES: RECEIVED PT IN DIANA CHAIR IN HALLWAY. CALM. A/O X2. ON ROOM AIR. BREATHING EVEN AND UNLABORED.NO ACUTE DISTRESS NOTED. NO C/O PAIN AT THIS TIME. SAFETY MEASURES IN PLACE. WILL CONTINUE TO MONITOR FOR SAFETY AND BEHAVIOR.
[2022-09-29] MEDS: ATORVASTATIN 10 MG TABLET PO SCH (21:40)
[2022-09-29] MEDS: TRAZODONE 50 MG TABLET PO SCH (21:40)
[2022-09-29] MEDS: AMOX/CLAVULANATE 875 MG TABLET PO SCH (21:45)
[2022-09-29 22:09] LABS: BILIRUBIN,DIRECT 0.1 mg/dL (0.0-0.2); BILIRUBIN,TOTAL 0.6 mg/dL (0.2-1.0)
--- NOTE | 2022-09-30 06:56 | NUR ---
PATENT SEARCHER NOTES: PATIENT IN HIS ROOM SLEEPING. EASILY AROUSED. CALM AND COMFORTABLE. NO ACUTE DISTRESS NOTED. ALL NEEDS ANTICIPATED AND RENDERED. SAFETY MEASURES IN PLACE. WILL ENDORSE TO ONCOMING SHIFT FOR CONTINUITY OF CARE.
[2022-09-30 08:00] VITALS: BP 101/76
[2022-09-30] MEDS: CHOLECALCIFEROL (VITAMIN D 3) 400 UNIT TABLET PO SCH (08:59)
[2022-09-30] MEDS: HALOPERIDOL 5 MG TABLET PO SCH ×3 (09:00→16:32)
[2022-09-30] MEDS: Fenofibrate 48 MG TABLET PO SCH (09:00)
[2022-09-30] MEDS: ASPIRIN EC 81 MG TABLET.DR PO SCH (09:00)
[2022-09-30] MEDS: ASCORBIC ACID 500 MG TABLET PO SCH (09:00)
[2022-09-30] MEDS: BACLOFEN (10 MG) 10 MG TABLET PO SCH ×3 (09:00→16:32)
[2022-09-30] MEDS: MULTIPLE VIT (LYCOPENE/FA/MV,CA,IRON,MIN/LUT)1 TAB PO SCH (09:00)
[2022-09-30] MEDS: LEVETIRACETAM (250 MG) 250 MG TABLET PO SCH ×2 (09:00→21:02)
[2022-09-30] MEDS: AMOX/CLAVULANATE 875 MG TABLET PO SCH ×2 (09:02→16:32)
--- NOTE | 2022-09-30 14:00 | NUR ---
NURSE NOTE: PT DOWN TO CT WITH LAILA QUIROGA. IN STABLE COND, WILL CONT TO MONITOR
--- NOTE | 2022-09-30 14:15 | NUR ---
NURSE NOTE: PT RETURNED FROM CT IN STABLE COND. WILL CONT TO MONITOR.
--- NOTE | 2022-09-30 15:38 | NUR ---
Dr. Link made aware of the CT of the head result and no new order.
[2022-09-30 16:00] VITALS: BP 101/63
[2022-09-30] MEDS ORDERED: AMOX/CLAVULANATE 875 MG TABLET PO SCH (17:00)
[2022-09-30 19:37] VITALS: BP 100/69
[2022-09-30 20:10] VITALS: BP 100/69
[2022-09-30] MEDS: ATORVASTATIN 10 MG TABLET PO SCH (21:02)
[2022-09-30] MEDS: TRAZODONE 50 MG TABLET PO SCH (21:03)
--- NOTE | 2022-10-01 04:43 | NUR ---
CALM, COMPLIANT WITH MEDICATION, NON-VERBAL, SCREAMING UNINTELLIGIBLE WORDS, INCONTINENT OF BOWEL AND BLADDER, TOOK ALL PM MEDS.
[2022-10-01 08:00] VITALS: BP 122/59
[2022-10-01] MEDS: HALOPERIDOL 5 MG TABLET PO SCH ×3 (08:21→16:00)
[2022-10-01] MEDS: CHOLECALCIFEROL (VITAMIN D 3) 400 UNIT TABLET PO SCH (08:21)
[2022-10-01] MEDS: BACLOFEN (10 MG) 10 MG TABLET PO SCH ×3 (08:21→16:00)
[2022-10-01] MEDS: LEVETIRACETAM (250 MG) 250 MG TABLET PO SCH ×2 (08:21→21:17)
[2022-10-01] MEDS: MULTIPLE VIT (LYCOPENE/FA/MV,CA,IRON,MIN/LUT)1 TAB PO SCH (08:21)
[2022-10-01] MEDS: ASCORBIC ACID 500 MG TABLET PO SCH (08:21)
[2022-10-01] MEDS: ASPIRIN EC 81 MG TABLET.DR PO SCH (08:21)
[2022-10-01] MEDS: Fenofibrate 48 MG TABLET PO SCH (08:21)
[2022-10-01] MEDS: AMOX/CLAVULANATE 875 MG TABLET PO SCH ×2 (08:23→16:02)
[2022-10-01 16:00] VITALS: BP 112/59
[2022-10-01 20:32] VITALS: BP 104/59
[2022-10-01] MEDS: ATORVASTATIN 10 MG TABLET PO SCH (21:18)
[2022-10-01] MEDS: TRAZODONE 50 MG TABLET PO SCH (21:27)
[2022-10-02 08:00] VITALS: BP 110/54
[2022-10-02] MEDS: ASCORBIC ACID 500 MG TABLET PO SCH (08:36)
[2022-10-02] MEDS: BACLOFEN (10 MG) 10 MG TABLET PO SCH ×3 (08:36→16:56)
[2022-10-02] MEDS: ASPIRIN EC 81 MG TABLET.DR PO SCH (08:37)
[2022-10-02] MEDS: Fenofibrate 48 MG TABLET PO SCH (08:37)
[2022-10-02] MEDS: MULTIPLE VIT (LYCOPENE/FA/MV,CA,IRON,MIN/LUT)1 TAB PO SCH (08:37)
[2022-10-02] MEDS: HALOPERIDOL 5 MG TABLET PO SCH ×3 (08:37→16:56)
[2022-10-02] MEDS: CHOLECALCIFEROL (VITAMIN D 3) 400 UNIT TABLET PO SCH (08:37)
[2022-10-02] MEDS: LEVETIRACETAM (250 MG) 250 MG TABLET PO SCH ×2 (08:37→20:39)
[2022-10-02] MEDS: AMOX/CLAVULANATE 875 MG TABLET PO SCH ×2 (08:39→16:58)
[2022-10-02] MEDS: LORAZEPAM 0.5 MG TABLET PO PRN (12:58)
--- NOTE | 2022-10-02 13:00 | NUR ---
NURSE NOTE: PT HAVING VERBAL OUTBURSTS, DISRUPTING OTHER PTS. ATIVAN PO ADMINISTERED ORDERE. PT MARY WELL. WILL CONT TO MONITOR.
--- NOTE | 2022-10-02 14:00 | NUR ---
NURSE NOTE: PT CALM AT THIS TIME. ATIVAN EFFECTIVE. WILL CONT TO MONITOR.
[2022-10-02 16:00] VITALS: BP 136/61
[2022-10-02 20:16] VITALS: BP 112/68
[2022-10-02] MEDS: ATORVASTATIN 10 MG TABLET PO SCH (21:10)
[2022-10-02] MEDS: TRAZODONE 50 MG TABLET PO SCH (21:11)
[2022-10-03 08:00] VITALS: BP 112/68
[2022-10-03] MEDS: ASPIRIN EC 81 MG TABLET.DR PO SCH (08:18)
[2022-10-03] MEDS: ASCORBIC ACID 500 MG TABLET PO SCH (08:19)
[2022-10-03] MEDS: HALOPERIDOL 5 MG TABLET PO SCH ×3 (08:19→16:07)
[2022-10-03] MEDS: MULTIPLE VIT (LYCOPENE/FA/MV,CA,IRON,MIN/LUT)1 TAB PO SCH (08:19)
[2022-10-03] MEDS: LEVETIRACETAM (250 MG) 250 MG TABLET PO SCH ×2 (08:19→20:54)
[2022-10-03] MEDS: Fenofibrate 48 MG TABLET PO SCH (08:19)
[2022-10-03] MEDS: CHOLECALCIFEROL (VITAMIN D 3) 400 UNIT TABLET PO SCH (08:19)
[2022-10-03] MEDS: BACLOFEN (10 MG) 10 MG TABLET PO SCH ×3 (08:19→16:07)
[2022-10-03] MEDS: AMOX/CLAVULANATE 875 MG TABLET PO SCH ×2 (08:20→16:07)
[2022-10-03 16:00] VITALS: BP 115/51
[2022-10-03 20:19] VITALS: BP_SYST 108; BP_SYST 128; BP_DIAS 76; BP_DIAS 79
[2022-10-03] MEDS: TRAZODONE 50 MG TABLET PO SCH (21:00)
[2022-10-03] MEDS: ATORVASTATIN 10 MG TABLET PO SCH (21:00)
[2022-10-04 08:00] VITALS: BP 115/55
[2022-10-04] MEDS: BACLOFEN (10 MG) 10 MG TABLET PO SCH ×3 (08:31→16:41)
[2022-10-04] MEDS: AMOX/CLAVULANATE 875 MG TABLET PO SCH ×2 (08:31→16:40)
[2022-10-04] MEDS: HALOPERIDOL 5 MG TABLET PO SCH ×3 (08:32→16:41)
[2022-10-04] MEDS: Fenofibrate 48 MG TABLET PO SCH (08:32)
[2022-10-04] MEDS: ASPIRIN EC 81 MG TABLET.DR PO SCH (08:32)
[2022-10-04] MEDS: MULTIPLE VIT (LYCOPENE/FA/MV,CA,IRON,MIN/LUT)1 TAB PO SCH (08:32)
[2022-10-04] MEDS: LEVETIRACETAM (250 MG) 250 MG TABLET PO SCH ×2 (08:32→21:18)
[2022-10-04] MEDS: ASCORBIC ACID 500 MG TABLET PO SCH (08:32)
[2022-10-04] MEDS: CHOLECALCIFEROL (VITAMIN D 3) 400 UNIT TABLET PO SCH (08:32)
--- NOTE | 2022-10-04 12:30 | NUR ---
RN NOTES; PT'S DAUGHTER MARIANNE CALLED UNIT FOR PT UPDATE, INFO GIVEN, MARIANNE VERBALIZED UNDERSTANDING AND THANKED RN.
[2022-10-04 16:00] VITALS: BP 115/53
[2022-10-04 19:49] VITALS: BP 106/52
[2022-10-04] MEDS: TRAZODONE 50 MG TABLET PO SCH (21:17)
[2022-10-04] MEDS: ATORVASTATIN 10 MG TABLET PO SCH (21:17)
[2022-10-04] MEDS: ZOLPIDEM TARTRATE 5 MG TABLET PO PRN (21:18)
--- NOTE | 2022-10-04 21:19 | NUR ---
Pt unable to sleep. Least restrictive measures ineffective. Ambien 5 mg po prn given as ordered. Will continue to monitor.
--- NOTE | 2022-10-04 22:30 | NUR ---
Post 1 hr Javierien effective. Pt asleep in bed easy to arouse. Will continue to monitor. Frequent visual check done for safety.
[2022-10-05 08:00] VITALS: BP 132/53
[2022-10-05] MEDS: MULTIPLE VIT (LYCOPENE/FA/MV,CA,IRON,MIN/LUT)1 TAB PO SCH (08:44)
[2022-10-05] MEDS: ASPIRIN EC 81 MG TABLET.DR PO SCH (08:44)
[2022-10-05] MEDS: LEVETIRACETAM (250 MG) 250 MG TABLET PO SCH ×2 (08:44→21:50)
[2022-10-05] MEDS: HALOPERIDOL 5 MG TABLET PO SCH ×3 (08:45→16:34)
[2022-10-05] MEDS: Fenofibrate 48 MG TABLET PO SCH (08:45)
[2022-10-05] MEDS: ASCORBIC ACID 500 MG TABLET PO SCH (08:45)
[2022-10-05] MEDS: BACLOFEN (10 MG) 10 MG TABLET PO SCH ×3 (08:45→16:34)
[2022-10-05] MEDS: CHOLECALCIFEROL (VITAMIN D 3) 400 UNIT TABLET PO SCH (08:45)
[2022-10-05] MEDS: AMOX/CLAVULANATE 875 MG TABLET PO SCH ×2 (08:49→16:42)
[2022-10-05 16:00] VITALS: BP 120/56
--- NOTE | 2022-10-05 17:46 | NUR ---
RN-NOTES PATIENT THE ROOM LYING IN BED AWAKE,A/O X1,GUARDED,NO ACUTE DISTRESS NOTED. ENCOURAGED AND ASSISTED IN REPOSITIONING Q2 HR. GOOD MAKI CARE RENDERED .COMPLIANT WITH MEDICATIONS.NEEDS MAXIMUM ASSIST WITH ADL'S. ALL NEEDS ATTENDED AND ANTICIPATED. WILL CONT. MONITORING FOR SAFETY AND BEHAVIOR.WILL ENDORSE TO INCOMING NURSE FOR CONTINUITY OF CARE
[2022-10-05 20:05] VITALS: BP 103/56
--- NOTE | 2022-10-05 20:15 | NUR ---
EXTRA HAND notes. Received patient in bed awake. Patient calm, confused, guarded and cooperative. Patient smiling during verbal interaction. No sign of distress or discomfort noted. Will continue to monitor for safety and behavior.
[2022-10-05] MEDS: ATORVASTATIN 10 MG TABLET PO SCH (21:51)
[2022-10-05] MEDS: TRAZODONE 50 MG TABLET PO SCH (21:51)
[2022-10-06 08:00] VITALS: BP 114/64
[2022-10-06 08:01] LABS: BASOPHILS # (AUTO) 0.1 K/uL (0.0-0.2); BASOPHILS % (AUTO) 1.9 % (0.0-2.0); EOSINOPHILS % (AUTO) 8.3 % (0.0-6.0); HEMATOCRIT 37 % (39-51); HEMOGLOBIN 12.3 g/dL (13.5-17.5); LYMPHOCYTES # (AUTO) 1.6 K/uL (0.8-4.8); MEAN CORPUSCULAR HGB CONC 33 g/dl (31.0-36.0); MEAN CORPUSCULAR VOLUME 86 fL (80-96); MONOCYTES # (AUTO) 0.7 K/uL (0.1-1.30); MONOCYTES % (AUTO) 11.8 % (2.0-12.0); NEUTROPHILS # (AUTO) 2.8 K/uL (1.8-8.9); PLATELET COUNT (AUTO) 256 K/uL (150-450); RED BLOOD CELL COUNT(AUTO) 4.37 MIL/uL (4.5-6.0); WHITE BLOOD COUNT (AUTO) 5.6 K/uL (4.3-11.0)
[2022-10-06] MEDS: LEVETIRACETAM (250 MG) 250 MG TABLET PO SCH ×2 (08:30→21:17)
[2022-10-06] MEDS: CHOLECALCIFEROL (VITAMIN D 3) 400 UNIT TABLET PO SCH (08:30)
[2022-10-06] MEDS: BACLOFEN (10 MG) 10 MG TABLET PO SCH ×3 (08:30→16:24)
[2022-10-06] MEDS: Fenofibrate 48 MG TABLET PO SCH (08:30)
[2022-10-06] MEDS: ASCORBIC ACID 500 MG TABLET PO SCH (08:30)
[2022-10-06] MEDS: MULTIPLE VIT (LYCOPENE/FA/MV,CA,IRON,MIN/LUT)1 TAB PO SCH (08:30)
[2022-10-06] MEDS: HALOPERIDOL 5 MG TABLET PO SCH ×3 (08:31→16:24)
[2022-10-06 08:41] LABS: CALCIUM, SERUM 9.1 mg/dL (8.5-10.1); MAGNESIUM 2.3 mg/dL (1.8-2.4); PHOSPHORUS 4.3 mg/dL (2.5-4.9); POTASSIUM 3.9 mmol/L (3.5-5.1)
[2022-10-06] MEDS: AMOX/CLAVULANATE 875 MG TABLET PO SCH (08:42)
[2022-10-06] MEDS: ASPIRIN EC 81 MG TABLET.DR PO SCH (08:42)
[2022-10-06 16:00] VITALS: BP 108/59
--- NOTE | 2022-10-06 19:00 | NUR ---
RN-NOTES PATIENT VISIBLE IN THE UNIT,A/O X1,GUARDED,NO ACUTE DISTRESS NOTED. ENCOURAGED AND ASSISTED IN REPOSITIONING Q2 HR. GOOD MAKI CARE RENDERED .COMPLIANT WITH MEDICATIONS.NEEDS MAXIMUM ASSIST WITH ADL'S. ALL NEEDS ATTENDED AND ANTICIPATED. WILL CONT. MONITORING FOR SAFETY AND BEHAVIOR.WILL ENDORSE TO INCOMING NURSE FOR CONTINUITY OF CARE
[2022-10-06 20:15] VITALS: BP 105/59
[2022-10-06] MEDS: TRAZODONE 50 MG TABLET PO SCH (21:18)
[2022-10-06] MEDS: ATORVASTATIN 10 MG TABLET PO SCH (21:18)
--- NOTE | 2022-10-06 21:32 | NUR ---
RN NOTES : RECEIVED PATIENT SITTING UP IN WATCHING TV IN ACTIVITY ROOM BREATHING UNLABORED NOT IN ANY FORM OF DISTRESS. PATIENT REMAINS DISORGANIZED, LABILE, CONFUSED, ANXIOUS BUT REDIRECTABLE.COMPLIANT WITH MEDICATION SAFETY PRECAUTIONS MAINTAINED. WILL CONTINUE TO MONITOR Q15MIN ROUNDS FOR SAFETY AND BEHAVIOR.
[2022-10-07] MEDS: ASPIRIN EC 81 MG TABLET.DR PO SCH (07:45)
[2022-10-07] MEDS: HALOPERIDOL 5 MG TABLET PO SCH ×3 (07:45→16:13)
[2022-10-07] MEDS: BACLOFEN (10 MG) 10 MG TABLET PO SCH ×3 (07:45→16:13)
[2022-10-07] MEDS: CHOLECALCIFEROL (VITAMIN D 3) 400 UNIT TABLET PO SCH (07:46)
[2022-10-07] MEDS: ASCORBIC ACID 500 MG TABLET PO SCH (07:46)
[2022-10-07] MEDS: MULTIPLE VIT (LYCOPENE/FA/MV,CA,IRON,MIN/LUT)1 TAB PO SCH (07:46)
[2022-10-07] MEDS: Fenofibrate 48 MG TABLET PO SCH (07:46)
[2022-10-07] MEDS: LEVETIRACETAM (250 MG) 250 MG TABLET PO SCH ×2 (07:46→21:24)
[2022-10-07 08:00] VITALS: BP 123/65
[2022-10-07 17:00] VITALS: BP 106/48
--- NOTE | 2022-10-07 19:58 | NUR ---
BANKING SERVICES CLERK GPS NOTES: RECEIVED PATIENT IN HIS BEDROOM RESTING AT THIS TIME. BREATHING UNLABORED NOT IN ANY FORM OF DISTRESS, NO C/O PAIN OR DISCOMFORT AT THIS TIME. SAFETY PRECAUTIONS MAINTAINED. WILL CONTINUE TO MONITOR Q15MIN ROUNDS FOR SAFETY AND BEHAVIOR.
[2022-10-07 20:00] VITALS: BP 152/71
[2022-10-07] MEDS: ATORVASTATIN 10 MG TABLET PO SCH (21:25)
[2022-10-07] MEDS: TRAZODONE 50 MG TABLET PO SCH (21:25)
--- NOTE | 2022-10-07 22:30 | NUR ---
GPS EARRING MAKER NOTE : PT COMPLIANT WITH HIS MEDICATIONS, MEDS GIVEN WITH APPLE SAUCE , TOLERATED WELL, ASPIRATION PRECAUTIONS OBSERVED, NO S/SX OF ASPIRATION NOTED, KEPT HOB ELEVATED, SAFETY MEASURES OBSERVED. WILL CONT TO MONITOR PT 'S BEHAVIOR AND SAFETY.
--- NOTE | 2022-10-08 00:56 | NUR ---
GPS MANAGER R D NOTE : PT ASLEEP, EASY TO AROUSE, REPOSITIONED AND KEPT CLEAN AND DRY. SAFETY MEASURES OBSERVED. WILL CONT TO MONITOR.
--- NOTE | 2022-10-08 06:09 | NUR ---
GPS CALTRANS EQUIPMENT OPERATOR NOTE : PT SLEPT WELL DURING SHIFT, COMFORTABLY RESTING IN HIS BED AT THIS TIME, BREATHING EVEN AND UNLABORED, NO S/SX OF DISTRESS OR DISCOMFORT NOTED. AM CARE PROVIDED BY STAFFS, TOLERATED WELL BY PT. REPOSITIONED Q 2 HRS. KEPT CLEAN AND DRY. SAFETY MEASURES NOTED AND OBSERVED. WILL ENDORSE CONTINUATION OF CARE TO AM ONCOMING NURSE.
[2022-10-08 08:00] VITALS: BP 123/52
[2022-10-08] MEDS: MULTIPLE VIT (LYCOPENE/FA/MV,CA,IRON,MIN/LUT)1 TAB PO SCH (08:34)
[2022-10-08] MEDS: BACLOFEN (10 MG) 10 MG TABLET PO SCH ×3 (08:34→17:33)
[2022-10-08] MEDS: ASCORBIC ACID 500 MG TABLET PO SCH (08:34)
[2022-10-08] MEDS: ASPIRIN EC 81 MG TABLET.DR PO SCH (08:34)
[2022-10-08] MEDS: LEVETIRACETAM (250 MG) 250 MG TABLET PO SCH ×2 (08:34→21:28)
[2022-10-08] MEDS: CHOLECALCIFEROL (VITAMIN D 3) 400 UNIT TABLET PO SCH (08:34)
[2022-10-08] MEDS: Fenofibrate 48 MG TABLET PO SCH (08:34)
[2022-10-08] MEDS: HALOPERIDOL 5 MG TABLET PO SCH ×3 (08:39→17:33)
[2022-10-08 16:00] VITALS: BP 103/63
[2022-10-08 20:23] VITALS: BP 104/66
[2022-10-08] MEDS: TRAZODONE 50 MG TABLET PO SCH (21:30)
[2022-10-08] MEDS: ATORVASTATIN 10 MG TABLET PO SCH (21:30)
[2022-10-09 08:00] VITALS: BP 113/51
[2022-10-09] MEDS: HALOPERIDOL 5 MG TABLET PO SCH ×2 (08:03→13:15)
[2022-10-09] MEDS: LEVETIRACETAM (250 MG) 250 MG TABLET PO SCH (08:03)
--- NOTE | 2022-10-09 08:05 | NUR ---
Discharge Note: Patient will be discharged to correction facility to [facility] [address] [place] [address]; ([phone]). Please coordinate ambulance at 1PM. [place]wall Machine Operator Helper spoke with Melina skirt clipper at [facility] ([phone]) who stated patient will be accepted at facility today. Patient is alert and oriented x1. Patient denies any suicidal or homicidal ideations. Patient is aware and agreeable with discharge plans. Pts daughter Gideon ([phone]) is aware and agreeable. Patient will continue to follow-up with (psychiatrist) Dr. Mccabe [address], [place] [address]; ([phone]) and (snap attacher) Dr. Mullins [address], [place] [address]; ([phone]). Patient presents with euthymic mood and congruent affect.
[2022-10-09] MEDS: MULTIPLE VIT (LYCOPENE/FA/MV,CA,IRON,MIN/LUT)1 TAB PO SCH (08:08)
[2022-10-09] MEDS: BACLOFEN (10 MG) 10 MG TABLET PO SCH ×2 (08:08→13:15)
[2022-10-09] MEDS: ASCORBIC ACID 500 MG TABLET PO SCH (08:08)
[2022-10-09] MEDS: ASPIRIN EC 81 MG TABLET.DR PO SCH (08:08)
[2022-10-09] MEDS: CHOLECALCIFEROL (VITAMIN D 3) 400 UNIT TABLET PO SCH (08:08)
[2022-10-09] MEDS: Fenofibrate 48 MG TABLET PO SCH (08:08)
--- NOTE | 2022-10-09 09:26 | NUR ---
RN-CO: PATIENT IS CALM AND COOPERATIVE TO CARE. DENIED AUDITORY AND VISUAL HALLUCINATION. DENIED SUICIDAL AND HOMICIDAL IDEATION. NO ACUTE DISTRESS NOTED. DR ODOM ORDERED TO DISCONTINUE HOLD AND DISCHARGE PT TO [facility] TODAY. PT'S DAUGHTER MARYCRUZ [phone] IS AWARE AND AGREEABLE OF THE DISCHARGE. PT IS ALSO MEDICALLY CLEARED. ALL BELONGINGS WILL BE GIVEN BACK TO PATIENT.
--- NOTE | 2022-10-09 12:47 | NUR ---
RN-CO: REPORT GIVEN TO ANA PAULA ULLOA.
--- NOTE | 2022-10-09 15:40 | NUR ---
RN-CO: PT WAS PICKED UP BY AMBULANCE ALL BELONGINGS WERE GIVEN BACK.
== END 2022-10-09 15:50 | DRG 885 ==
LOC: ER 15:10 → GPS 20:51
PROVIDERS: ADMIT Psychiatry & Neurology Psychiatry
DX: F25.0 Schizoaffective disorder, bipolar type (principal); F06.8 Other specified mental disorders due to known physiological condition; N17.0 Acute kidney failure with tubular necrosis; J15.9 Unspecified bacterial pneumonia; J69.0 Pneumonitis due to inhalation of food and vomit; I69.354 Hemiplegia and hemiparesis following cerebral infarction affecting left non-dominant side; J44.0 Chronic obstructive pulmonary disease with (acute) lower respiratory infection; F29 Unspecified psychosis not due to a substance or known physiological condition; F41.9 Anxiety disorder, unspecified; G40.909 Epilepsy, unspecified, not intractable, without status epilepticus; R41.9 Unspecified symptoms and signs involving cognitive functions and awareness; F32.9 Major depressive disorder, single episode, unspecified; E78.5 Hyperlipidemia, unspecified; Z79.82 Long term (current) use of aspirin; Z79.899 Other long term (current) drug therapy
CPT/HCPCS: 36415; 70450-TC; 71045-TC; 80048-TC; 80053-TC; 80061-TC; 80076-TC; 81001; 82247-TC; 82248-TC; 83605-TC; 83735-TC; 84100-TC; 84484-TC; 85025-TC; 87081-TC; 87086-TC; 97112-TC; 97116-TC; 97530-TC; C9803; G0480; J2060; J3490

== ENCOUNTER 2023-06-07 16:17 | Inpatient (IN) | payer MEDICARE, OTHER ==
[~2023-06-07] VITALS: Ht 181.6 cm; Wt 86.2 kg
[~2023-06-07 16:17] MED LIST: ACET-868 PO; ASCO-352 PO; ASPI-1420 PO; ATOR10TA PO; BACL10TA PO; BISA10SU11 RC; CHOL100043 PO; FENO54TA PO; LEVE500T9 PO; LOPE2TAB25 PO; MAGN400O6 PO; MELA3CAP2 PO; MULT-447 PO; NA P133E RC; RISP0.2515 PO; TRAZ-182 PO
[2023-06-07] MEDS ORDERED: HALO5TAB PO (17:25)
[2023-06-07] MEDS ORDERED: CALC355O18 PO (17:25)
[2023-06-07] MEDS ORDERED: FENO48TA PO (17:25)
[2023-06-07 18:52] LABS: CALCIUM, SERUM 9.5 mg/dL (8.5-10.1); CARBON DIOXIDE 25 mmol/L (21-32); CHLORIDE 106 mmol/L (98-107); GLUCOSE 92 mg/dL (74-106); POTASSIUM 4.4 mmol/L (3.5-5.1); SODIUM SERUM 139 mmol/L (136-145); UREA NITROGEN, BLOOD 21 mg/dL (7-18)
[2023-06-07 18:54] LABS: APPEARANCE,URINE CLEAR (CLEAR); BILIRUBIN,URINE NEGATIVE (NEGATIVE); BLOOD, URINE NEGATIVE Ery/uL (NEGATIVE); COLOR,URINE YELLOW (YELLOW); KETONES,URINE NEGATIVE (NEGATIVE); LEUKOCYTE ESTERASE ,URINE NEGATIVE (NEGATIVE); NITRITE, URINE NEGATIVE (NEGATIVE); PH,URINE 6.5 (5.0-8.0); PROTEIN,URINE NEGATIVE (NEGATIVE); UGLUCOSE NEGATIVE (NEGATIVE); UROBILINOGEN,URINE 0.2 EU/dL (0.2)
[2023-06-07 18:54] LABS: BASOPHILS # (AUTO) 0.1 K/uL (0.0-0.2); BASOPHILS % (AUTO) 1.3 % (0.0-2.0); EOSINOPHILS # (AUTO) 0.6 K/uL (0.0-0.7); EOSINOPHILS % (AUTO) 9.8 % (0.0-6.0); HEMATOCRIT 40 % (39-51); LYMPHOCYTES # (AUTO) 1.7 K/uL (0.8-4.8); LYMPHOCYTES % (AUTO) 28.9 % (20.0-44.0); MEAN CORPUSCULAR HEMOGLOBIN 28 PG (26.0-33.0); MEAN CORPUSCULAR HGB CONC 33 g/dl (31.0-36.0); MEAN CORPUSCULAR VOLUME 87 fL (80-96); MONOCYTES # (AUTO) 0.8 K/uL (0.1-1.30); MONOCYTES % (AUTO) 12.7 % (2.0-12.0); NEUTROPHILS # (AUTO) 2.8 K/uL (1.8-8.9); NEUTROPHILS % (AUTO) 47.3 % (43.0-81.0); PLATELET COUNT (AUTO) 241 K/uL (150-450); RED BLOOD CELL COUNT(AUTO) 4.59 MIL/uL (4.5-6.0); RED CELL DISTRIBUTION WIDTH 14.9 % (11.5-15.0)
[2023-06-07 19:00] LABS: ALANINE AMINOTRANSFERASE 20 U/L (12-78); ALBUMIN 3.7 g/dL (3.4-5.0); ALKALINE PHOSPHATASE 43 U/L (46-116); ASPARTATE AMINOTRANSFERASE 13 U/L (15-37); BILIRUBIN,DIRECT 0.1 mg/dL (0.0-0.2); BILIRUBIN,TOTAL 0.3 mg/dL (0.2-1.0); TOTAL PROTEIN, SERUM 7.2 g/dL (6.4-8.2)
[2023-06-07] MEDS ORDERED: ACETAMINOPHEN 325 MG TABLET PO PRN ×2 (19:00→20:00)
[2023-06-07] MEDS ORDERED: ONDANSETRON HCL/PF 4 MG/2 ML VIAL IVP PRN (19:00)
[2023-06-07] MEDS ORDERED: MAG HYDROX/AL HYDROX/SIMETH 30 ML UDC PO PRN ×2 (19:00→22:00)
[2023-06-07] MEDS ORDERED: ZOLPIDEM TARTRATE 5 MG TABLET PO PRN (19:00)
[2023-06-07] MEDS ORDERED: Z GUARD REMEDY 4 OZ OINT TP PRN (19:00)
[2023-06-07] MEDS ORDERED: MAGNESIUM HYDROXIDE 30 ML UDC PO PRN ×2 (19:00→20:00)
[2023-06-07 19:01] LABS: INR 1.02 (0.91-1.10); PARTIAL THROMBOPLASTIN TIME 31.3 SEC (24.3-34.3); PROTHROMBIN TIME 10.7 SECS (9.2-11.1)
[2023-06-07] MEDS ORDERED: BISACODYL SUPP (10 MG) 10 MG/SUPP.RECT SUPP.RECT RC PRN (20:00)
[2023-06-07] MEDS ORDERED: NA PHOS,M-B/NA PHOS,DI-BA 1 EA ENEMA RC PRN (20:00)
[2023-06-07] MEDS: LEVETIRACETAM (250 MG) 250 MG TABLET PO SCH (22:04)
[2023-06-07] MEDS: ATORVASTATIN 10 MG TABLET PO SCH (22:04)
[2023-06-07] MEDS: ENOXAPARIN SODIUM 40 MG/0.4 ML DISP.SYRIN SQ SCH (22:05)
[2023-06-07] MEDS: IV D5/0.45 NACL 1,000 ML IV PRN (22:26)
[2023-06-07] MEDS ORDERED: IPRATROPIUM NEB FS 0.5 MG/2.5 ML AMPUL.NEB NEB PRN (23:00)
[2023-06-07] MEDS ORDERED: ALBUTEROL FS 2.5 MG/0.5 ML VIAL.NEB NEB PRN (23:00)
[2023-06-07 23:19] VITALS: O2SAT 95
[2023-06-07 23:20] VITALS: BP 120/59; TEMP 98.2; O2SAT 97
[2023-06-07 23:37] VITALS: O2SAT 97
[2023-06-08 05:57] LABS: BASOPHILS # (AUTO) 0.1 K/uL (0.0-0.2); BASOPHILS % (AUTO) 1.7 % (0.0-2.0); EOSINOPHILS # (AUTO) 0.7 K/uL (0.0-0.7); EOSINOPHILS % (AUTO) 11.2 % (0.0-6.0); HEMATOCRIT 39 % (39-51); LYMPHOCYTES # (AUTO) 1.9 K/uL (0.8-4.8); MEAN CORPUSCULAR HEMOGLOBIN 29 PG (26.0-33.0); MEAN CORPUSCULAR HGB CONC 33 g/dl (31.0-36.0); MEAN CORPUSCULAR VOLUME 88 fL (80-96); MONOCYTES # (AUTO) 0.7 K/uL (0.1-1.30); MONOCYTES % (AUTO) 11.2 % (2.0-12.0); NEUTROPHILS # (AUTO) 2.7 K/uL (1.8-8.9); NEUTROPHILS % (AUTO) 44.9 % (43.0-81.0); PLATELET COUNT (AUTO) 203 K/uL (150-450); RED BLOOD CELL COUNT(AUTO) 4.48 MIL/uL (4.5-6.0); RED CELL DISTRIBUTION WIDTH 14.6 % (11.5-15.0)
[2023-06-08 06:15] LABS: CALCIUM, SERUM 9.1 mg/dL (8.5-10.1); CREATININE 0.9 mg/dL (0.6-1.3); MAGNESIUM 1.8 mg/dL (1.8-2.4); POTASSIUM 3.8 mmol/L (3.5-5.1)
[2023-06-08 06:20] LABS: THYROID STIMULATING HORMONE 2.915 uIU/mL (0.358-3.74)
[2023-06-08 08:00] VITALS: BP 103/54; TEMP 97.5; O2SAT 96
[2023-06-08] MEDS: PANTOPRAZOLE 40 MG TABLET.DR PO SCH (08:00)
[2023-06-08] MEDS: LEVETIRACETAM (250 MG) 250 MG TABLET PO SCH ×2 (09:27→21:48)
[2023-06-08] MEDS: CHOLECALCIFEROL 1,000 UNIT TABLET (VIT D3) PO SCH (09:27)
[2023-06-08] MEDS: BACLOFEN (10 MG) 10 MG TABLET PO SCH ×3 (09:28→16:57)
[2023-06-08] MEDS: ASPIRIN EC 81 MG TABLET.DR PO SCH (09:28)
[2023-06-08] MEDS: MULTIVIT W/MINERALS 1 TAB TABLET PO SCH (09:28)
[2023-06-08] MEDS: ASCORBIC ACID 500 MG TABLET PO SCH (09:28)
[2023-06-08] MEDS: HALOPERIDOL 5 MG TABLET PO SCH ×3 (09:30→16:57)
[2023-06-08] MEDS: Fenofibrate 48 MG TABLET PO SCH (11:41)
[2023-06-08 16:00] VITALS: BP 106/88; TEMP 97.3; O2SAT 94
[2023-06-08] MEDS: IV D5/0.45 NACL 1,000 ML IV PRN (16:55)
[2023-06-08 20:00] VITALS: BP 104/57; TEMP 97.9; O2SAT 97
[2023-06-08] MEDS: ATORVASTATIN 10 MG TABLET PO SCH (21:48)
[2023-06-08] MEDS: ENOXAPARIN SODIUM 40 MG/0.4 ML DISP.SYRIN SQ SCH (21:48)
[2023-06-09 06:27] LABS: BASOPHILS # (AUTO) 0.1 K/uL (0.0-0.2); BASOPHILS % (AUTO) 1.1 % (0.0-2.0); EOSINOPHILS # (AUTO) 0.5 K/uL (0.0-0.7); EOSINOPHILS % (AUTO) 8.7 % (0.0-6.0); HEMATOCRIT 42 % (39-51); HEMOGLOBIN 13.9 g/dL (13.5-17.5); LYMPHOCYTES # (AUTO) 1.7 K/uL (0.8-4.8); LYMPHOCYTES % (AUTO) 31.3 % (20.0-44.0); MEAN CORPUSCULAR HEMOGLOBIN 28 PG (26.0-33.0); MEAN CORPUSCULAR HGB CONC 33 g/dl (31.0-36.0); MEAN CORPUSCULAR VOLUME 85 fL (80-96); MONOCYTES # (AUTO) 0.6 K/uL (0.1-1.30); MONOCYTES % (AUTO) 10.6 % (2.0-12.0); NEUTROPHILS # (AUTO) 2.7 K/uL (1.8-8.9); NEUTROPHILS % (AUTO) 48.3 % (43.0-81.0); PLATELET COUNT (AUTO) 223 K/uL (150-450); RED BLOOD CELL COUNT(AUTO) 4.93 MIL/uL (4.5-6.0); RED CELL DISTRIBUTION WIDTH 14.6 % (11.5-15.0); WHITE BLOOD COUNT (AUTO) 5.5 K/uL (4.3-11.0)
[2023-06-09 06:44] LABS: MAGNESIUM 2.1 mg/dL (1.8-2.4); PHOSPHORUS 3.7 mg/dL (2.5-4.9); POTASSIUM 3.8 mmol/L (3.5-5.1)
[2023-06-09] MEDS: PANTOPRAZOLE 40 MG TABLET.DR PO SCH (07:40)
[2023-06-09 08:00] VITALS: BP 110/57; TEMP 97.9; O2SAT 96
[2023-06-09] MEDS: LEVETIRACETAM (250 MG) 250 MG TABLET PO SCH ×2 (08:34→21:07)
[2023-06-09] MEDS: BACLOFEN (10 MG) 10 MG TABLET PO SCH ×3 (08:34→16:26)
[2023-06-09] MEDS: CHOLECALCIFEROL 1,000 UNIT TABLET (VIT D3) PO SCH (08:34)
[2023-06-09] MEDS: ASPIRIN EC 81 MG TABLET.DR PO SCH (08:35)
[2023-06-09] MEDS: HALOPERIDOL 5 MG TABLET PO SCH ×3 (08:35→16:26)
[2023-06-09] MEDS: MULTIVIT W/MINERALS 1 TAB TABLET PO SCH (08:35)
[2023-06-09] MEDS: ASCORBIC ACID 500 MG TABLET PO SCH (08:35)
[2023-06-09] MEDS: Fenofibrate 48 MG TABLET PO SCH (08:37)
[2023-06-09 16:08] VITALS: BP 103/45; TEMP 98; O2SAT 94
[2023-06-09 20:00] VITALS: BP 95/67; TEMP 98.1; O2SAT 97
[2023-06-09] MEDS: ENOXAPARIN SODIUM 40 MG/0.4 ML DISP.SYRIN SQ SCH (21:07)
[2023-06-09] MEDS: ATORVASTATIN 10 MG TABLET PO SCH (21:07)
[2023-06-10 06:11] LABS: BASOPHILS # (AUTO) 0.1 K/uL (0.0-0.2); EOSINOPHILS # (AUTO) 0.5 K/uL (0.0-0.7); EOSINOPHILS % (AUTO) 8.6 % (0.0-6.0); HEMATOCRIT 40 % (39-51); HEMOGLOBIN 13.4 g/dL (13.5-17.5); LYMPHOCYTES # (AUTO) 1.6 K/uL (0.8-4.8); LYMPHOCYTES % (AUTO) 28.9 % (20.0-44.0); MEAN CORPUSCULAR HEMOGLOBIN 29 PG (26.0-33.0); MEAN CORPUSCULAR HGB CONC 34 g/dl (31.0-36.0); MEAN CORPUSCULAR VOLUME 86 fL (80-96); MONOCYTES # (AUTO) 0.6 K/uL (0.1-1.30); MONOCYTES % (AUTO) 10.4 % (2.0-12.0); NEUTROPHILS # (AUTO) 2.9 K/uL (1.8-8.9); NEUTROPHILS % (AUTO) 51.1 % (43.0-81.0); PLATELET COUNT (AUTO) 226 K/uL (150-450); RED BLOOD CELL COUNT(AUTO) 4.62 MIL/uL (4.5-6.0); RED CELL DISTRIBUTION WIDTH 14.5 % (11.5-15.0); WHITE BLOOD COUNT (AUTO) 5.7 K/uL (4.3-11.0)
[2023-06-10 06:41] LABS: CALCIUM, SERUM 9.4 mg/dL (8.5-10.1); CREATININE 0.8 mg/dL (0.6-1.3); PHOSPHORUS 3.9 mg/dL (2.5-4.9); POTASSIUM 3.5 mmol/L (3.5-5.1)
[2023-06-10 08:00] VITALS: BP 109/43; TEMP 98.1; O2SAT 97
[2023-06-10] MEDS: HALOPERIDOL 5 MG TABLET PO SCH ×2 (08:06→13:24)
[2023-06-10] MEDS: CHOLECALCIFEROL 1,000 UNIT TABLET (VIT D3) PO SCH (08:09)
[2023-06-10] MEDS: ASCORBIC ACID 500 MG TABLET PO SCH (08:09)
[2023-06-10] MEDS: PANTOPRAZOLE 40 MG TABLET.DR PO SCH (08:09)
[2023-06-10] MEDS: ASPIRIN EC 81 MG TABLET.DR PO SCH (08:09)
[2023-06-10] MEDS: BACLOFEN (10 MG) 10 MG TABLET PO SCH ×2 (08:12→13:24)
[2023-06-10] MEDS: LEVETIRACETAM (250 MG) 250 MG TABLET PO SCH (08:12)
[2023-06-10] MEDS: MULTIVIT W/MINERALS 1 TAB TABLET PO SCH (08:12)
[2023-06-10] MEDS: Fenofibrate 48 MG TABLET PO SCH (08:12)
== END 2023-06-10 16:05 | DRG 641 ==
LOC: ER 18:11 → MED 21:05
PROVIDERS: ADMIT Student in an Organized Health Care Education/Training Program; ATTEND Student in an Organized Health Care Education/Training Program
DX: R62.7 Adult failure to thrive (principal); I69.354 Hemiplegia and hemiparesis following cerebral infarction affecting left non-dominant side; E86.0 Dehydration; F25.9 Schizoaffective disorder, unspecified; G40.909 Epilepsy, unspecified, not intractable, without status epilepticus; J44.9 Chronic obstructive pulmonary disease, unspecified; F32.9 Major depressive disorder, single episode, unspecified; Z79.899 Other long term (current) drug therapy; E78.5 Hyperlipidemia, unspecified; Z79.82 Long term (current) use of aspirin; R79.89 Other specified abnormal findings of blood chemistry
CPT/HCPCS: 36415; 71045-TC; 80048-TC; 80076-TC; 83735-TC; 84100-TC; 84443-TC; 84484-TC; 85025-TC; 85730-TC; 87081-TC; 92507-TC; 92521; 92526; 92611-TC; 97110-TC; 97112-TC; 97530-TC; A4223; G0378; J1650; J3490

== ENCOUNTER 2024-01-07 13:42 | Inpatient (IN) | payer MEDICARE, OTHER ==
[~2024-01-07] VITALS: Ht 180.3 cm; Wt 82.1 kg
[~2024-01-07 13:42] MED LIST changes: +CALC355O18 PO; +FENO48TA PO; -FENO54TA PO; +HALO5TAB PO; -LOPE2TAB25 PO; -RISP0.2515 PO; -TRAZ-182 PO
[2024-01-07 14:42] LABS: BASOPHILS % (AUTO) 0.6 % (0.0-2.0); EOSINOPHILS # (AUTO) 0.3 K/uL (0.0-0.7); EOSINOPHILS % (AUTO) 3.7 % (0.0-6.0); HEMATOCRIT 40 % (39-51); HEMOGLOBIN 13.4 g/dL (13.5-17.5); LYMPHOCYTES # (AUTO) 1.2 K/uL (0.8-4.8); LYMPHOCYTES % (AUTO) 17.2 % (20.0-44.0); MEAN CORPUSCULAR HEMOGLOBIN 28 PG (26.0-33.0); MEAN CORPUSCULAR HGB CONC 33 g/dl (31.0-36.0); MEAN CORPUSCULAR VOLUME 83 fL (80-96); MONOCYTES # (AUTO) 0.7 K/uL (0.1-1.30); MONOCYTES % (AUTO) 9.9 % (2.0-12.0); NEUTROPHILS # (AUTO) 4.6 K/uL (1.8-8.9); NEUTROPHILS % (AUTO) 68.6 % (43.0-81.0); PLATELET COUNT (AUTO) 318 K/uL (150-450); RED BLOOD CELL COUNT(AUTO) 4.84 MIL/uL (4.5-6.0); RED CELL DISTRIBUTION WIDTH 14.9 % (11.5-15.0); WHITE BLOOD COUNT (AUTO) 6.7 K/uL (4.3-11.0)
[2024-01-07 14:52] LABS: CALCIUM, SERUM 8.8 mg/dL (8.5-10.1); CARBON DIOXIDE 25 mmol/L (21-32); CHLORIDE 106 mmol/L (98-107); CREATININE 0.9 mg/dL (0.6-1.3); GLUCOSE 113 mg/dL (74-106); POTASSIUM 4.2 mmol/L (3.5-5.1); SODIUM SERUM 139 mmol/L (136-145); UREA NITROGEN, BLOOD 26 mg/dL (7-18)
[2024-01-07 14:54] LABS: INR 1.01 (0.91-1.10); PROTHROMBIN TIME 10.4 SECS (9.2-11.1)
[2024-01-07 14:57] LABS: ALANINE AMINOTRANSFERASE 18 U/L (12-78); ALBUMIN 3.3 g/dL (3.4-5.0); ALCOHOL, BLOOD < 3 mg/dL (0-10); ALKALINE PHOSPHATASE 45 U/L (46-116); ASPARTATE AMINOTRANSFERASE 12 U/L (15-37); BILIRUBIN,DIRECT 0.1 mg/dL (0.0-0.2); BILIRUBIN,TOTAL 0.4 mg/dL (0.2-1.0); TOTAL PROTEIN, SERUM 7.1 g/dL (6.4-8.2)
[2024-01-07 15:02] LABS: ACETAMINOPHEN 0 ug/ml (10-30); SALICYLATE 1.1 mg/dL (2.8-20.0)
[2024-01-07 15:30] LABS: THYROID STIMULATING HORMONE 2.075 uIU/mL (0.358-3.74)
[2024-01-07] MEDS ORDERED: ACET325T53 PO (15:56)
[2024-01-07 20:00] VITALS: BP_SYST 126; BP_SYST 127; BP_DIAS 55; BP_DIAS 68; TEMP 97.5; TEMP 98.1; O2SAT 95; O2SAT 97
[2024-01-07] MEDS ORDERED: ONDANSETRON HCL/PF 4 MG/2 ML VIAL IVP PRN (20:00)
[2024-01-07] MEDS ORDERED: NA PHOS,M-B/NA PHOS,DI-BA 1 EA ENEMA RC PRN (20:00)
[2024-01-07] MEDS ORDERED: MAGNESIUM HYDROXIDE 30 ML UDC PO PRN ×2 (20:00)
[2024-01-07] MEDS ORDERED: ACETAMINOPHEN 325 MG TABLET PO PRN ×3 (20:00)
[2024-01-07] MEDS ORDERED: BISACODYL SUPP (10 MG) 10 MG/SUPP.RECT SUPP.RECT RC PRN (20:00)
[2024-01-07] MEDS ORDERED: Z GUARD REMEDY 4 OZ OINT TP PRN (20:00)
[2024-01-07] MEDS ORDERED: MAG HYDROX/AL HYDROX/SIMETH 30 ML UDC PO PRN (20:00)
[2024-01-07] MEDS: ENOXAPARIN SODIUM 40 MG/0.4 ML DISP.SYRIN SQ SCH (20:22)
[2024-01-07] MEDS: IV D5/0.45 NACL 1,000 ML IV PRN (20:27)
[2024-01-07] MEDS: LEVETIRACETAM (250 MG) 250 MG TABLET PO SCH (21:21)
[2024-01-07] MEDS: ATORVASTATIN 10 MG TABLET PO SCH (21:21)
[2024-01-07] MEDS ORDERED: Medication Not On Formulary EA (Melatonin 3 MG) PO SCH (22:00)
[2024-01-08] VITALS (7 sets, daily range): BP systolic 103–141; BP diastolic 55–86; TEMP 97.5–99.7; O2SAT 95–100
[2024-01-08 07:05] LABS: BASOPHILS # (AUTO) 0.1 K/uL (0.0-0.2); BASOPHILS % (AUTO) 0.6 % (0.0-2.0); EOSINOPHILS # (AUTO) 0.3 K/uL (0.0-0.7); EOSINOPHILS % (AUTO) 2.6 % (0.0-6.0); HEMATOCRIT 41 % (39-51); HEMOGLOBIN 13.5 g/dL (13.5-17.5); LYMPHOCYTES # (AUTO) 1.3 K/uL (0.8-4.8); MEAN CORPUSCULAR HEMOGLOBIN 28 PG (26.0-33.0); MEAN CORPUSCULAR HGB CONC 33 g/dl (31.0-36.0); MEAN CORPUSCULAR VOLUME 84 fL (80-96); MONOCYTES # (AUTO) 1.1 K/uL (0.1-1.30); MONOCYTES % (AUTO) 9.5 % (2.0-12.0); NEUTROPHILS # (AUTO) 9.1 K/uL (1.8-8.9); NEUTROPHILS % (AUTO) 76.3 % (43.0-81.0); PLATELET COUNT (AUTO) 293 K/uL (150-450); RED BLOOD CELL COUNT(AUTO) 4.84 MIL/uL (4.5-6.0); RED CELL DISTRIBUTION WIDTH 14.5 % (11.5-15.0); WHITE BLOOD COUNT (AUTO) 11.9 K/uL (4.3-11.0)
[2024-01-08 08:24] LABS: ALBUMIN 3.3 g/dL (3.4-5.0); BILIRUBIN,TOTAL 0.6 mg/dL (0.2-1.0); CREATININE 0.8 mg/dL (0.6-1.3); MAGNESIUM 2.1 mg/dL (1.8-2.4); PHOSPHORUS 3.1 mg/dL (2.5-4.9); POTASSIUM 3.9 mmol/L (3.5-5.1); TOTAL PROTEIN, SERUM 7.4 g/dL (6.4-8.2)
[2024-01-08] MEDS ORDERED: Fenofibrate 48 MG TABLET PO SCH (09:00)
[2024-01-08] MEDS: Fenofibrate 48 MG TABLET PO SCH (09:00)
[2024-01-08] MEDS: ASPIRIN EC 81 MG TABLET.DR PO SCH (09:06)
[2024-01-08] MEDS: HALOPERIDOL 5 MG TABLET PO SCH (09:06)
[2024-01-08] MEDS: CHOLECALCIFEROL 1,000 UNIT TABLET (VIT D3) PO SCH (09:07)
[2024-01-08] MEDS: BACLOFEN (10 MG) 10 MG TABLET PO SCH (09:07)
[2024-01-08] MEDS: MULTIVIT W/MINERALS 1 TAB TABLET PO SCH (09:07)
[2024-01-08] MEDS: ASCORBIC ACID 500 MG TABLET PO SCH (09:14)
[2024-01-08 12:49] LABS: APPEARANCE,URINE CLEAR (CLEAR); BILIRUBIN,URINE NEGATIVE (NEGATIVE); BLOOD, URINE NEGATIVE Ery/uL (NEGATIVE); COLOR,URINE YELLOW (YELLOW); KETONES,URINE NEGATIVE (NEGATIVE); LEUKOCYTE ESTERASE ,URINE NEGATIVE (NEGATIVE); NITRITE, URINE NEGATIVE (NEGATIVE); PROTEIN,URINE NEGATIVE (NEGATIVE); UGLUCOSE NEGATIVE (NEGATIVE)
[2024-01-09] VITALS (7 sets, daily range): BP systolic 95–133; BP diastolic 53–72; TEMP 97.7–98.9; O2SAT 94–99
[2024-01-09] MEDS ORDERED: BARIUM SULFATE 98% 135 ML SUSP.RECON PO ONE (11:51)
[2024-01-09] MEDS ORDERED: ALBUTEROL HALF STRENGTH 1.25 MG/3 ML VIAL.NEB NEB PRN (13:30)
[2024-01-10 00:23] VITALS: BP 105/76; TEMP 99.9; O2SAT 98
[2024-01-10] MEDS ORDERED: GUAIFENESIN/D-METHORPHAN HB 5 ML UDC PO PRN (05:00)
[2024-01-10 05:05] VITALS: BP 119/68; TEMP 98.4; O2SAT 94
[2024-01-10 08:23] VITALS: BP 109/48; TEMP 97.9; O2SAT 98
[2024-01-10 12:17] VITALS: BP 124/66; TEMP 98.6; O2SAT 96
== END 2024-01-10 14:48 | DRG 640 ==
LOC: ER 13:58 → TELE 17:50
PROVIDERS: ADMIT Internal Medicine; ATTEND Internal Medicine
DX: R62.7 Adult failure to thrive (principal); G93.41 Metabolic encephalopathy; I69.354 Hemiplegia and hemiparesis following cerebral infarction affecting left non-dominant side; E86.0 Dehydration; J44.9 Chronic obstructive pulmonary disease, unspecified; G40.909 Epilepsy, unspecified, not intractable, without status epilepticus; E78.5 Hyperlipidemia, unspecified; R53.1 Weakness; F20.9 Schizophrenia, unspecified; F32.A Depression, unspecified; I44.0 Atrioventricular block, first degree; I69.320 Aphasia following cerebral infarction; Z68.25 Body mass index [BMI] 25.0-25.9, adult
CPT/HCPCS: 36415; 70450-TC; 71045-TC; 74230-TC; 80048-TC; 80053-TC; 80076-TC; 82962-TC; 83735-TC; 84100-TC; 84443-TC; 84484-TC; 85025-TC; 85730-TC; 92526; 92611-TC; 93307-TC; A4223; G0378; G0480; J1650; J3490; J7042